=== PATIENT | female | born 1950 ===

== ENCOUNTER → 2018-04-17 | Outpatient (CLI) | payer MEDICARE ==
[~2018-04-17] MED LIST: ACET500T68 PO; CALC600T4 PO; CHOL2000 PO; FLUT100D IH; MELO15TA23 PO; MONT10TA6 PO; POTA20TA4 PO; QUIN40TA16 PO; SIMV40TA3 PO; TRIA1CAP3 PO; VENTOLIN HFA18 GM INH
--- NOTE | 2018-04-17 13:10 | PAIN ---
DATE OF SERVICE: 04/17/2018 INITIAL CONSULTATION FOR PAIN CLINIC CHIEF COMPLAINT: Low back and mid back pain. HISTORY OF PRESENT ILLNESS: The patient is a 67-year-old female who presents with history of pain in the low back for 20 years plus by her report. The patient reports no specific injury or action that she is aware of, but over the years it is getting much worse and over the last 1 year, is becoming incredibly worse. The patient reports her whole back hurts, mainly in the low back; however, also has some aching pains in joints and the knees as well as her right shoulder and left hip. The patient reports that joints ache and her back aches all the time. She has a history of compression fractures around age 39, which were thoracic by her report. There are no diagnostic studies performed within the last several years by patient's report as well. The patient reports the pain in the low back as her most significant complaint. It is becoming more constant, aching and dull, shooting, sometimes into the posterior gluteus and thighs, more on the left side than the right, but mainly just in the low back. The patient reports it is worse with standing, walking, changing positions, walking up stairs, walking uphill. The patient reports it awakens her from sleep occasionally, but not every night, does not affect her bowel or bladder control, and does not affect her ability to walk significantly, unless it is more than about 10 minutes, then the pain becomes worse. The patient has had physical therapy, but only for her hips in the past without any physical therapy for her back. The patient has tried hydrocodone, is currently taking meloxicam and Advil. The patient reports the Advil works better than either the other two and she has been sticking with that at this time. The patient again has not had any diagnostic studies to date. Reports no loss of function or weakness in the lower extremities, but increased fatigability, more on the left side than the right. The patient rates her disability rating from 0-10, 10 being the worst, as 5 in all categories, with the life support activities, self-care, family and home responsibilities, recreation, social activity, occupation, sexual behavior and self-care activities. PAST MEDICAL HISTORY: Significant for hypertension, shortness of breath, obesity, diabetes, arthritis, osteopenia. PREVIOUS SURGERIES: Include tonsillectomy and tubal ligation as well as cholecystectomy. CURRENT MEDICATIONS: Include Klor-Con, montelukast, simvastatin, meloxicam, triamterene/hydrochlorothiazide, quinapril, Flovent, vitamin D, Tylenol, calcium, and Ventolin. ALLERGIES: THE PATIENT IS ALLERGIC TO CODEINE. FAMILY HISTORY: Significant for heart disease. SOCIAL HISTORY: The patient drinks alcohol only very rarely, does not smoke, does not use any illegal, illicit or recreational drugs. She is , lives with her spouse and lives locally in [place], [place]. Has no children living at home. Reports she is currently retired. REVIEW OF SYSTEMS: The patient's review of systems is positive for those items mentioned in history of present illness. All systems reviewed and otherwise negative. It is complete, full and well documented on the patient's chart. PHYSICAL EXAMINATION: VITAL SIGNS: Today, the patient's blood pressure is 160/112, pulse is 101, respirations 16, temperature 98.1 degrees Fahrenheit, height is 5 feet 1 inch, weight is 228 pounds. GENERAL: The patient is awake, alert, oriented, appropriate, very pleasant demeanor. HEENT: Head shows normocephalic, atraumatic. Extraocular movements are intact and symmetrical. Oral cavity: Mucous membranes are moist and pink. Dentition is intact. NECK: Shows anterior throat supple without palpable lymphadenopathy noted. Swallow reflex is symmetrical. Neck shows full rotational motion of cervical spine, both laterally as well as extension and flexion without significant difficulty. CHEST: Shows normal on inspection. Breath sounds are clear to auscultation bilaterally. HEART: Shows S1, S2 clear. No murmurs auscultated. ABDOMEN: Obese, soft, nontender, nondistended. No palpable organomegaly is noted. No rebound or guarding demonstrated. BACK: Shows spine grossly in the midline. Slight exaggeration of thoracic kyphosis, some minor flattening of lumbar lordotic curvature. Lumbar paraspinous muscle shows symmetrical on inspection, as is thoracic paraspinous muscles. With palpation, there is mild tenderness in the mid to upper thoracic distribution, but again diffusely without evidence of atrophy, hypertrophy, no radiation or trigger points demonstrated. The patient's lower lumbar spine shows symmetrical musculature as well. With palpation shows some moderate tenderness throughout the upper, middle and lower distribution, again diffusely bilaterally. No specific tenderness over the spinous processes, over the sacrum or sacroiliac regions. The patient has good rotational motion of the lumbar spine, both laterally greater than 10 degrees right and left with some minor tenderness with extension and axial loading but better with forward flexion at 45 degrees with pains relieved. EXTREMITIES: The patient's lower extremities show deep tendon reflexes 1+ in the patellar and tendo-calcaneus tendons. Motor exam is approximately 4 on a scale of 5, but equal and symmetrical with dorsiflexion, extension, quadriceps and hamstring flexion bilaterally. Peripheral pulses are 1+ posterior tibial. No peripheral edema is noted. The patient's straight leg raising is noted to be negative for reproduction of any radicular symptoms bilaterally. Gaenslen's and Brendan's maneuvers are grossly negative bilaterally as well. The patient is able to stand, stand on her toes, is walking with a centrally normal appearing gait, does not appear to favor the right or left lower extremity significantly, not using any assistive devices to ambulate. SKIN: Warm and dry, good turgor. No edema. No sores, rashes or bruising. IMPRESSION: 1. This is a 67-year-old female with a long history of 20 years plus of low back and mid back pain as noted. 2. No current diagnostic studies. 3. Obesity. 4. Diabetes. 5. Arthritis. 6. Hypertension. PLAN: Options were discussed with the patient including conservative medical management, physical therapies, and interventional techniques. She would like to pursue anything that will help her pain improve. We did discuss some physical therapy including pool therapy. First, we will obtain diagnostic studies of her lumbar spine and then we will order MRI. Once these results are back, we will discuss these with her as well and decide our next course of action. The patient will in the meantime maintain activity as tolerated. We did discuss checking with her primary care physician once again about her blood pressure, it is quite high today. The patient reports it has been running high recently as well and she will follow up with that. In the meantime, we will get the MRI scan ordered and once that is obtained, determine further course of action and the patient will follow up in approximately 1 week after MRI scan is obtained. NIKKI RIVERA MD DR: RONEY/ward JOB#: [id number] / [id number] sushma Figueroa Dr.
== END | disposition home or self-care (01) ==
LOC: PNCL 08:43
PROVIDERS: ATTEND Anesthesiology
DX: M54.5 Low back pain (principal); I10 Essential (primary) hypertension; E66.9 Obesity, unspecified; E11.9 Type 2 diabetes mellitus without complications; M19.90 Unspecified osteoarthritis, unspecified site; M85.88 Other specified disorders of bone density and structure, other site; Z88.5 Allergy status to narcotic agent; Z82.49 Family history of ischemic heart disease and other diseases of the circulatory system; Z87.81 Personal history of (healed) traumatic fracture
CPT/HCPCS: G0463

== ENCOUNTER → 2018-04-21 | Outpatient (CLI) | payer MEDICARE ==
--- NOTE | 2018-04-21 14:02 | RAD ---
MRI Lumbar Spine without contrast History: Low back pain Technique: Multiplanar, multi sequential noncontrast MR imaging was performed of the lumbar spine. Comparison: None Findings: Lumbar vertebral body stature is maintained. There is old superior compression deformity T12 and T11 not associated with significant marrow edema or osseous retropulsion. There is grade 1 anterior spondylolisthesis at L4-5, negligible anterior spondylosis is L5-S1. There is hemangioma of the L3 vertebral body. There is [id number] degenerative disc disease at L4-5, moderate degenerative disc disease at L1-2, mild disc desiccation at levels of the lumbar spine. There is nonspecific mild heterogeneity of marrow signal. L1-L2: There is minimal disc osteophyte complex. There is mild facet degenerative change. Neural foramina and spinal canal are adequate. L2-L3: There is mild to moderate facet degenerative change. There is negligible disc osteophyte complex. Spinal canal and left neural foramen are adequate, mild overall narrowing of the right neural foramen. L3-L4: There is mild buckling of the ligamentum flavum and facet hypertrophic change greater on the right. There is minimal disc osteophyte complex. Spinal canal is overall adequate. There is minimal narrowing of the right neural foramen, left neural foramen adequate. L4-L5: There is moderate buckling of the ligamentum flavum and kxnn-yi-xsjevmst facet hypertrophic change. There is mild partial uncovering of the posterior aspect of the disc due to spondylolisthesis, minimal superimposed bulge. There is overall moderate to severe narrowing of the far lateral recesses bilaterally and mild to moderate narrowing of the central canal. There is mild neural foramina compromise bilaterally somewhat greater on the right. L5-S1: Spinal canal and neural foramina are adequate. Impression: 1. There is moderate to severe narrowing of the far lateral recesses bilaterally at L4-5 primarily from posteriorly, idji-ys-cqxezbki narrowing of the central canal at this level. 2. There is grade 1 anterior spondylolisthesis at L4-5 and to lesser degree L5-S1, facet degenerative change greater inferiorly of the lumbar spine. 3. There is mild lumbar neural foramina compromise as stated. 4. There is degenerative disc disease greatest at L1-L2 and L4-5. Electronically signed by: Jon Mccracken MD (04/21/2018 1:58 PM) [id number]
== END ==
LOC: MRI 13:18
PROVIDERS: ATTEND Anesthesiology
DX: M48.061 Spinal stenosis, lumbar region without neurogenic claudication (principal); M43.8X4 Other specified deforming dorsopathies, thoracic region; M43.16 Spondylolisthesis, lumbar region; M47.816 Spondylosis without myelopathy or radiculopathy, lumbar region; M25.78 Osteophyte, vertebrae
CPT/HCPCS: 72148

== ENCOUNTER → 2018-05-01 | Outpatient (CLI) | payer MEDICARE ==
--- NOTE | 2018-05-02 02:28 | PAIN ---
DATE OF SERVICE: 05/01/2018 DIAGNOSES: Lumbar degenerative disk disease with low back pain. HISTORY OF PRESENT ILLNESS: The patient is a 67-year-old female who returns for followup status post initial evaluation and MRI scan, which we discussed with her today and I gave her a copy of the MRI as well. The patient has significant moderate to severe narrowing of the far lateral recess at bilateral L4-L5 primarily from posteriorly, mild to moderate narrowing of the central canal at that level, grade 1 anterior spondylolisthesis L4-L5 and lesser degree L5-S1 facet degenerative change as well at those levels. Used anatomical models to describe the findings on the MRI scan as well with the patient and she voices understanding. The patient reports still significant pain in the back itself without significant radiation in the lower extremities, but occasionally into the bilateral posterior gluteus and lateral thighs. The patient reports the pain is a 7 on a scale of 10 at its worst, 5 on average, 5 at its least and is a 5 today; described as aching and dull; worse with activity, standing, walking, changing positions with the lumbar spine. The patient reports it awakens her from sleep, but only occasionally, not every night, does not cause any bowel or bladder incontinence. The patient has done physical therapy in the past. We discussed some pool therapy and we will get that ordered for her today, as she is interested in pursuing with this as well. The patient reports no new motor or sensory deficits, no new bowel or bladder incontinence or other complaints. PHYSICAL EXAMINATION: VITAL SIGNS: Today, the patient's blood pressure is 165/88, pulse 91, respirations are 16, temperature is 97.7 degrees Fahrenheit, weight is 229 pounds. GENERAL: The patient is awake, alert, oriented, appropriate, very pleasant demeanor. HEENT: Head shows normocephalic, atraumatic. Extraocular movements are intact and symmetrical. Oral cavity: Mucous membranes moist and pink. Dentition is intact. NECK: Shows anterior throat supple without palpable lymphadenopathy noted. Swallow reflex is symmetrical. CHEST: Shows normal on inspection. Breath sounds are clear to auscultation bilaterally. HEART: Shows S1, S2 clear. No murmurs auscultated. ABDOMEN: Soft, nontender, nondistended. No palpable organomegaly is noted. No rebound or guarding demonstrated. BACK: Shows spine grossly in the midline. Slight exaggeration of thoracic kyphosis and minor flattening of lumbar lordotic curvature. Lumbar paraspinous musculature shows symmetrical on inspection or palpation shows some moderate tenderness but only diffusely without radiation. The patient has good rotational motion of lumbar spine, both laterally as well as extension and flexion without significant increase in pain. EXTREMITIES: Lower extremities show deep tendon reflexes at 1+ in the patellar and tendo calcaneus tendons are equal. Motor exam is 4 on a scale of 5, but symmetrical with dorsiflexion and extension, quadriceps and hamstring flexion and equal. Peripheral pulses are 1+ posterior tibia. No peripheral edema is noted bilaterally. Options were discussed with the patient. The patient's old chart was reviewed as her current medication regimen and updated. Current review of systems is updated today as well. We will order a pool therapy through physical therapy and they will contact her to schedule this. Also discussed possible interventional techniques. She would like to try the pool therapy first before discussing any interventional procedures or planning any interventional procedures. The patient will follow up once the pool therapy has begun and we will evaluate progress at that time. NIKKI RIVERA MD DR: RONEY/ward JOB#: [id number] / [id number]
== END | disposition home or self-care (01) ==
LOC: PNCL 07:57
PROVIDERS: ATTEND Anesthesiology
DX: M51.36 Other intervertebral disc degeneration, lumbar region (principal)
CPT/HCPCS: G0463